=== PATIENT | female | born 1955 | race Caucasian/White ===

== ENCOUNTER → 2016-09-28 | Outpatient (CLI) | payer SELFPAY ==
--- NOTE | 2016-09-28 15:24 | DI ---
XR L-SPINE MIN 4 VW,09/28/2016 2:42 PM: Clinical History: Osteoarthritis of the spine with radiculopathy. Previous Exam: January 01, 2013 Findings: AP, lateral, flexion and extension views of the lumbar spine are obtained, and demonstrate grade 1 an terolisthesis of L3 on L4. There is transpedicular fixation of L4/L5. There is also interbody fusion of L4/5. Peripheral vascular calcifications are noted. A nonobstructive bowel gas pattern is noted. There is no evidence of instability on flexion or extens ion. No pathologic calcifications are noted. Impression: Grade 1 anterolisthesis of L3 on L4.
== END ==
LOC: ORTHO 14:44
PROVIDERS: ATTEND Physician Assistant
DX: M47.26 Other spondylosis with radiculopathy, lumbar region (principal); Z98.1 Arthrodesis status
CPT/HCPCS: 72110

== ENCOUNTER → 2016-10-04 | Outpatient (CLI) | payer SELFPAY ==
--- NOTE | 2016-10-04 16:03 | DI ---
History: Fall. Low back pain. Comparison: January 01, 2013 Findings: There is posterior fixation of L5-S1. There are laminectomy defects in this area. Conus medullaris normal position at the level of L1 No evidence of arachnoiditis T12-L1: No stenosis or narrowing L1-2: No stenosis or foraminal narrowing mild degenerative changes of the facet joints L2-3 No stenosis or foraminal narrowing mild degenerative changes in the facet joints and mild ligame ntous hypertrophy L3-4 very mild posterior disc bulge. Moderate degenerative changes in facet joints. Moderate ligament ous hypertrophy. There is subsequent narrowing of the spinal canal without felisa spinal stenosis. Palmer ral foramina remain patent bilaterally L4-5: Posterior disc bulge/osteophyte complex, moderate to severe degenerative changes in the facet j oints, and ligamentous hypertrophy resulting in severe focal spinal stenosis, and moderate to severe bilateral neural foramen narrowing. No stenosis or foraminal narrowing at the level of L5-S1. Impression Posterior fixation L5-S1. There are also laminectomy changes at this level. Degenerative changes of facet joints throughout the lumbar spine. At the level of L4-5 there is severe focal spinal stenosis, and moderate to severe bilateral neural f oraminal narrowing secondary to posterior disc bulge/osteophyte complex, ligamentous hypertrophy, and degenerative changes in the facet joints.
== END ==
LOC: MRI 09:40
PROVIDERS: ATTEND Physician Assistant
DX: M47.26 Other spondylosis with radiculopathy, lumbar region (principal)
CPT/HCPCS: 72148